=== PATIENT | female | born 1960 | race Caucasian/White ===

== ENCOUNTER 2017-05-21 11:11 | Day surgery (SDC) | payer OTHER ==
[2017-05-20 08:45] VITALS: BMI 26.3
[2017-05-21] MEDS ORDERED: Propofol 200 MG/20 ML VIAL ONE (13:54)
--- NOTE | 2017-05-21 14:46 | OP ---
DATE OF PROCEDURE: 05/21/2017 TITLE OF PROCEDURE: Colonoscopy. PREPROCEDURE DIAGNOSES: 1. Screening. 2. Family history of colon cancer in maternal grandmother. POSTPROCEDURE DIAGNOSES: 1. Exam to cecum; good bowel preparation. 2. Normal colon. 3. Small internal hemorrhoids. 4. No colonic polyps seen. PROCEDURE IN DETAIL: Written informed consent was obtained. The patient was brought to the endosco py suite. Total intravenous anesthesia was provided by Alexandra Michaels CRNA. The patient was placed in the left lateral decubitus position. A digital rectal exam was performed that was unremarkable. A Pentax video colonoscope was inserted through the anal canal and advanced under direct visualiza tion to the cecum. Position in the cecum was verified by clear identification of the appendiceal or ifice and the ileocecal valve. The quality of the bowel preparation was good. Each colon segment w as examined carefully as the colonoscope was slowly withdrawn from the cecum. Vascular pattern and haustral folds appeared normal. No polyp, diverticulum or vascular ectasia was identified. In the rectum, a retroflexed view demonstrated small internal hemorrhoids that were not actively bleeding. The colon was decompressed as the colonoscope was removed from the patient. There were no immediat e complications. She was transferred to the day stay surgery area for post-procedure monitoring. RECOMMENDATIONS: 1. Resume previous diet and medications. 2. Repeat colonoscopy in 7 years. 3. Follow up with Gastroenterology as needed.
== END 2017-05-21 15:00 | disposition home or self-care (01) ==
LOC: SDC 11:11
PROVIDERS: ATTEND Internal Medicine Gastroenterology
PROC: 0DJD8ZZ Inspection of Lower Intestinal Tract, Via Natural or Artificial Opening Endoscopic (ICD-10-PCS; principal; 2017-05-21)
DX: Z12.11 Encounter for screening for malignant neoplasm of colon (principal); K64.8 Other hemorrhoids; E78.00 Pure hypercholesterolemia, unspecified; M41.9 Scoliosis, unspecified; Z88.2 Allergy status to sulfonamides; Z88.0 Allergy status to penicillin; Z88.8 Allergy status to other drugs, medicaments and biological substances; Z79.899 Other long term (current) drug therapy; Z90.710 Acquired absence of both cervix and uterus; Z98.890 Other specified postprocedural states; Z80.0 Family history of malignant neoplasm of digestive organs
CPT/HCPCS: J2704

== ENCOUNTER 2018-02-26 09:10 | Outpatient (CLI) | payer OTHER ==
--- NOTE | 2018-02-26 10:58 | MRI ---
LUMBAR SPINE MRI WITHOUT IV CONTRAST: History: 57-year-old female with history of bilateral back pain and scoliosis without injury. FINDINGS: There is fairly severe S-shaped scoliosis of the thoracolumbar vertebral column, convex to the right side at the mid lumbar vertebral column level. Generalized disc desiccation changes and ligament and facet hypertrophic changes. L1-2: There is some disc protrusion changes with mild left lateral recess stenosis without significan t foraminal stenosis. L2-3: There is moderate to severe left lateral recess stenosis and moderate to severe left foraminal stenosis. L3-4: There is moderate bilateral lateral recess stenosis and mild bilateral foraminal stenosis. L4-5: Mild bilateral recess stenosis and bilateral foraminal stenosis. L5-S1: Very slight right lateral recess stenosis and mild bilateral foraminal stenosis. No significan t abnormal marrow signal. IMPRESSION: Severe scoliosis changes with generalized disc desiccation changes and ligament and facet hypertrophi c changes. Variable severity multilevel recess and foraminal stenosis, mostly in the mild to moderate range. POS: [facility]
== END 2018-02-26 09:11 | disposition home or self-care (01) ==
LOC: SCSMRI 09:10
DX: M54.9 Dorsalgia, unspecified (principal); M41.9 Scoliosis, unspecified; M51.36 Other intervertebral disc degeneration, lumbar region; M99.83 Other biomechanical lesions of lumbar region
CPT/HCPCS: 72148

== ENCOUNTER 2018-07-31 09:33 | Outpatient (CLI) | payer BC ==
--- NOTE | 2018-07-31 09:53 | RAD ---
CHEST ONE VIEW: History: Pre op. FINDINGS: Heart size and mediastinum are within normal limits. Lungs appear clear of any infiltrative process. IMPRESSION: 1. No active intrathoracic disease. 2. Scoliosis. POS: C
== END 2018-07-31 09:34 | disposition home or self-care (01) ==
LOC: SCSRAD 09:33
PROVIDERS: ATTEND Family Medicine
DX: Z01.810 Encounter for preprocedural cardiovascular examination (principal); M41.9 Scoliosis, unspecified
CPT/HCPCS: 71045

== ENCOUNTER 2019-02-06 10:23 | Outpatient (CLI) | payer BC ==
--- NOTE | 2019-02-06 11:44 | MMO ---
Bilateral MAMMO Bilat Screen [facility]. CLINICAL HISTORY: Patient is 58 years old and is seen for screening. The patient has the following family history of breast cancer: mother, at age 54, malignant (generic). The patient has no personal history of cancer. The patient has a history of Implants in 1993 and left needle biopsy in 2012 - benign. VIEWS: The views performed were: bilateral craniocaudal; bilateral mediolateral oblique; and bilateral Implant displaced. FILMS COMPARED: The present examination has been compared to prior imaging studies performed at [facility] on 02/25/2013, 07/23/2013 and 12/27/2015. This study has been interpreted with the assistance of computer-aided detection. MAMMOGRAM FINDINGS: The breasts are heterogeneously dense, which could obscure a lesion on mammography. Normal implants are present. There are no suspicious masses, suspicious calcifications, or new areas of architectural distortion. IMPRESSION: THERE IS NO MAMMOGRAPHIC EVIDENCE OF MALIGNANCY. A ROUTINE FOLLOW-UP MAMMOGRAM IN 1 YEAR IS RECOMMENDED. ACR BI-RADS Category 2 - Benign finding MAMMOGRAPHY NOTE: 1. A negative mammogram report should not delay a biopsy if a dominant of clinically suspicious mass is present. 2. Approximately 10% to 15% of breast cancers are not detected by mammography. 3. Adenosis and dense breasts may obscure an underlying neoplasm. Reported by: MALACHI ROQUE MD Electonically Signed: [id number]
== END 2019-02-06 10:24 | disposition home or self-care (01) ==
LOC: SCSMAMMO 10:23
PROVIDERS: ATTEND Family Medicine
DX: Z12.31 Encounter for screening mammogram for malignant neoplasm of breast (principal); Z80.3 Family history of malignant neoplasm of breast
CPT/HCPCS: 77067

== ENCOUNTER 2022-04-04 10:13 | Outpatient (CLI) | payer BC | END 2022-04-04 10:14 | disposition home or self-care (01) | LOC: BICMAMMO 10:13 | PROVIDERS: ATTEND Family Medicine | DX: Z12.31 Encounter for screening mammogram for malignant neoplasm of breast (principal); Z80.3 Family history of malignant neoplasm of breast; Z91.89 Other specified personal risk factors, not elsewhere classified; Z98.82 Breast implant status | CPT/HCPCS: 77063; 77067 ==